=== PATIENT | male | born 1950 | race Caucasian/White ===

== ENCOUNTER 2017-05-17 08:38 | Day surgery (SDC) | payer MEDICARE, OTHER ==
[~2017-05-17 08:38] MED LIST: BROMFED DM COU118 ML PO; DOXAZOSIN 4MG TA4 MG PO; LIPITOR10 MG PO; MECLIZINE 25MG25 MG PO; MELOXICAM15 MG PO; PANTOPRAZOLE40 M1 PO; SEPTRA DS 800 M1 TA1 PO
[2017-05-17 12:50] VITALS: BP 127/76
== END 2017-05-17 10:35 | disposition home or self-care (01) ==
LOC: SDC 08:38
PROVIDERS: Ophthalmology
PROC: 08RK3JZ Replacement of Left Lens with Synthetic Substitute, Percutaneous Approach (ICD-10-PCS; principal; 2017-05-17 11:00)
DX: H26.9 Unspecified cataract (principal)
CPT/HCPCS: V2632

== ENCOUNTER 2017-05-31 08:12 | Day surgery (SDC) | payer MEDICARE, OTHER ==
[2017-05-31 10:33] VITALS: BP 122/85
== END 2017-05-31 10:02 | disposition home or self-care (01) ==
LOC: SDC 08:12
PROC: 08RJ3JZ Replacement of Right Lens with Synthetic Substitute, Percutaneous Approach (ICD-10-PCS; principal; 2017-05-31)
DX: H26.9 Unspecified cataract (principal)

== ENCOUNTER 2017-07-13 13:12 | Emergency (ER) | payer MEDICARE, OTHER ==
[~2017-07-13] VITALS: Ht 185.4 cm; Wt 113.4 kg
--- OUTSIDE RECORDS SUMMARY | 2017-07-13 13:20 | External Medical Summary Rpt ---
Author Author MANA Lamb, [employer] Organization [employer] Address Unknown Phone Unavailable
--- OUTSIDE RECORDS SUMMARY | 2017-07-13 13:20 | External Medical Summary Rpt | CCD ---
Author Author [employer] Organization [employer] Address Unknown Phone Unavailable Purpose Continuity of Care Document - through 2016
--- OUTSIDE RECORDS SUMMARY | 2017-07-13 13:20 | External Medical Summary Rpt | CCD ---
Demographics Preferred Language [place] Marital Status Unknown Presybeterian Affiliation Unknown Race Unknown Ethnic Group Unknown Author Author , MANA ADAIR Address Unknown Phone Immunization No patient found.
--- OUTSIDE RECORDS SUMMARY | 2017-07-13 13:20 | External Medical Summary Rpt | CCD ---
Author Author RHONDA Address Unknown Phone Purpose Continuity of Care Document - through 2016
--- OUTSIDE RECORDS SUMMARY | 2017-07-13 13:20 | External Medical Summary Rpt | CCD ---
Demographics Preferred Language Malian Marital Status Unknown Hinduism Affiliation Unknown Race Unknown Ethnic Group Unknown Author Author , MANA ADAIR Address Unknown Phone Immunization No patient found.
--- OUTSIDE RECORDS SUMMARY | 2017-07-13 13:20 | External Medical Summary Rpt | CCD ---
Author Author RHONDA Address Unknown Phone [email or web address] Purpose Continuity of Care Document - through 2016
[2017-07-13] MEDS ORDERED: ETODOLAC200 MG PO (14:19)
--- NOTE | 2017-07-13 14:21 | Urgent Treatment Center Report ---
History of Present Issue Date/Time Seen by Provider 07/13/17 1343 Visit Reason Pt arrived:Walked Presenting Problem:PT C/O RIGHT SHOULDER PAIN THAT RADIATES DOWN TO HIS ELBOW Location if Accident: Onset of symptoms date/time:/ or onset unknown for:MEDICAL HX UNKNOWN Have you (or family members/close friends) recently traveled outside the [place]? N If Yes, where/when: Have you had exposure to infectious disease within the past month? TB? Other? Specify: Patient states that he has been having pain and tenderness in his shoulder for about a year now State that he has had multiple xrays and seen his family doctor multiple times for treatment. State that he began to have the pain again and states that the pain is in the right shoulder area and radiates down to elbow State that pain is worse with movement or when he tries to raise his arm ALLERGIES Coded Allergies: Penicillins (11/10/16) Home Medications Active Scripts D-METHORPHAN HB/P-EPD HCL/BPM (Bromfed Dm Cough Syrup) 10 ML PO Q4HP PRN cough #120 SYR Prov: 11/10/16 MECLIZINE HCL (Meclizine 25MG) 25 MG PO BID #30 TABLET Prov: 11/10/16 Reported Medications Doxazosin Mesylate (Doxazosin 4MG Tablet) 4 MG PO DAILY Pantoprazole Sodium (Pantoprazole) 40 MG PO DAILY Atorvastatin Calcium (Lipitor 10MG) 20 MG PO DAILY History Medical History General CAD? No Angina: No ND: No Hypertension? No Hyperlipidemia? Yes CHF? No DVT? No PE? No COPD? No Asthma? Yes Anemia? No GERD? No Gastric ulcers? No GI Bleed? No Hernia? No Thyroid Problems? No Hypothyroidism? No CVA? No Seizures? No Diabetes? No Renal Insuffiency? No UTI? No Stones? No BPH? No GB Disease: No Nephritic Syndrome? No Asplenia? No Hepatitis? No Sickle Cell Disease? No Arthritis? Yes Migraines? No Cataracts? No Glaucoma? No MRSA? No HIV? No TB? No Anxiety? No Depression? No Cancer? No More? No Immunization HX DT/Tetanus > 10 YRS Flu [id number] Pneumonia 01/14/2012 Surgical Hx Previous Surgery?Y APPENDECTOMY I&D Family History Family HX Diabetes Yes CAD Yes Hypertension Yes Hyperlipidemia No Cancer Yes TB No Social History Smoking Hx Smoker: Never Smoker Tobacco: No Alcohol Alcohol: Yes Review of Systems All Other Systems Reviewed and Negative Physical Exam Vital Signs Vital Signs Date Time Temp Pulse Resp B/P Pulse O2 O2 Flow FiO2 Ox Delivery Rate 07/13 1418 16 07/13 1330 98.4 91 16 120/87 98 General Appearance normal appearance, WD/WN, no apparent distress Respiratory Status Yes: trachea midline, chest symmetrical, non tender chest. No: respiratory distress. Cardiovascular normal exam, regular rate/rhythm, no peripheral edema Extremities Pain in right shoulder area that worsens with movement, good pulses, good color and cap refill Neurologic alert, normal exam, oriented x 3 Medical Decision Making LABS/Meds/Orders Pt receiving controlled substance in ED? No Results/Orders Current Medication Orders Sig/Maureen Start time Last Medication Dose Route Stop Time Status Admin Ketorolac 60 MG ONCE ONE 07/13 1415 DC 07/13 Tromethamine IM 07/13 1416 1418 Methylprednisolone 125 MG ONCE ONE 07/13 141 DC 07/13 Sodium Succinate IM 07/13 1416 1418 Ketorolac 0 .STK-MED ONE 07/13 1404 DC Tromethamine .ROUTE Methylprednisolone 0 .STK-MED ONE 07/13 1403 DC Sodium Succinate .ROUTE Progress [facility] Progress Notes Comment Patient did not want to repeat xray, Reviewed old xray from march of 2017 impression on xray Mild subacromial stenosis, patient informed that I would make the recommendation that patient see Orthopedics here at hospital for further treatment and evaluation and Patient advised that he would call the clinic for appointment upon leaving here today Departure Departure Time of Disposition 141 Disposition DC Home or Self Care(routine) Clinical Impression Primary Impression: Shoulder pain Qualifiers: Chronicity: unspecified Laterality: right Qualified Code: M25.511 - Pain in right shoulder Condition STABLE Referrals Beth YOUNG,Nehemiah (Family): 2 Days-Call Office Reina YOUNG,Bill OREILLY MD, CESAR LORENZANA Patient Instructions DI for Shoulder Pain, How To Perform RICE (Rest, Ice, Compress, Elevate) Additional Instructions Follow up with Orthopedics as advised in the UTC today Take medication as prescribed REturn if needed Follo u up with family doctor if needed Discharge Counseling Counseled pt/family regarding diagnosis, medications/RX, home care, follow up needs Prescriptions Current Visit Scripts Etodolac (Etodolac 200MG CAP) 200 MG PO Q6 #24 CAP at 6418
[2017-07-13 14:22] VITALS: BP 120/87
== END 2017-07-13 14:22 | disposition home or self-care (01) ==
LOC: UTC 13:12
DX: M25.511 Pain in right shoulder (principal); Z88.0 Allergy status to penicillin; E78.5 Hyperlipidemia, unspecified; J45.909 Unspecified asthma, uncomplicated

== ENCOUNTER → 2017-08-05 | Outpatient (CLI) | payer MEDICARE, OTHER ==
[~2017-08-05] MED LIST changes: +ETODOLAC200 MG PO
[2017-08-05 13:50] LABS: BUN 10 mg/dL (7-18)
[2017-08-05 13:54] LABS: GFR (ESTIMATED) 75 ML/MIN (>60)
== END ==
LOC: LAB 10:39
PROVIDERS: Internal Medicine Adolescent Medicine
DX: E78.5 Hyperlipidemia, unspecified (principal); I10 Essential (primary) hypertension